=== PATIENT | female | born 1975 | race Hispanic/Latino ===

== ENCOUNTER 2021-10-23 19:02 | Emergency (ER) | payer SELFPAY ==
[2021-10-23 19:17] VITALS: BP 126/64; PULSE 98; RESP 18; TEMP 36.9; O2SAT 100
--- NOTE | 2021-10-23 19:59 | ED.LOWEXIN ---
HPI - Extremity Injury (Lower) General Chief Complaint: Extremity Injury, Lower Stated Complaint: Right Leg Pain Time Seen by Provider: 10/23/21 19:59 Source: patient Mode of arrival: ambulatory Limitations: no limitations History of Present Illness HPI Narrative: 46-year-old female presents with complaint of pain to left groin for 2 to 3 days. Denies injury. Does not work. States that she does do things around her home such as cleaning, cook and exercise. Has been taking Advil to treat her pain. States that pain comes and goes, is worse with movement. Pain is bad when trying to sit down on toilet. Ambulatory with steady gait but reports that there is pain when ambulatory. All systems reviewed and negative except as noted above. Related Data Allergies Allergy/AdvReac Type Severity Reaction Status Date / Time Penicillins Allergy Rash Verified 10/23/21 19:22 Review of Systems Review of Systems: CONSTITUTIONAL: Denies fever, chills, or sweats. EYES: Denies visual changes, redness, or discharge. ENT: Denies rhinorrhea, congestion, sore throat, or otalgia. CARDIOVASCULAR: Denies chest pain, palpitations, or edema. RESPIRATORY: Denies cough or dyspnea. GASTROINTESTINAL: Denies abdominal pain, nausea, vomiting, or diarrhea. GENITOURINARY: Denies dysuria or hematuria. SKIN: Denies rash or itching. MUSCULOSKELETAL: Reports left groin pain. NEUROLOGIC: Denies headache, numbness, or weakness. PSYCHIATRIC: Denies anxiety or depression. All other systems reviewed are negative, except as documented in HPI. PMFSH Comments At time of signature, agree with nursing past medical, surgical, social and family history. There is no relevant family history pertinent to the presenting complaint. Exam Narrative: GENERAL: This is a well-nourished, well-developed patient, in no apparent distress. HEAD: normocephalic, atraumatic. EYES: PERRL. Sclera clear/white. Vision is grossly intact. EARS: External ears normal NOSE: External nose normal NECK: Neck supple, non-tender without lymphadenopathy, masses or thyromegaly. CARDIOVASCULAR: Regular rate and rhythm without murmurs, gallops, or rubs. RESPIRATORY: Clear to auscultation. Breath sounds equal bilaterally. No wheezes, rales, or rhonchi. SKIN: warm, Dry, intact with no suspicious lesions or rash, good texture and turgor. NEURO: awake, alert, and oriented to person, place and time. There were no obvious focal neurologic abnormalities. EXTREMITIES: tenderness on evaluation of L groin. pain with passive ROM. unable to abduction L hip due to L groin pain. Course Course Level of Care: Express Care Visit Vital Signs Vital signs: Vital Signs Temperature 36.9 C 10/23/21 19:17 Pulse Rate 98 10/23/21 19:17 Respiratory Rate 18 10/23/21 19:17 Blood Pressure 126/64 10/23/21 19:17 Pulse Oximetry 100 10/23/21 19:17 Oxygen Delivery Room Air 10/23/21 19:17 Temperature 36.9 C 10/23/21 19:17 Pulse Rate 98 10/23/21 19:17 Respiratory Rate 18 10/23/21 19:17 Blood Pressure 126/64 10/23/21 19:17 Pulse Oximetry 100 10/23/21 19:17 Oxygen Delivery Room Air 10/23/21 19:17 Reviewed MDM - Extremity Injury (Lower) MDM Narrative Medical decision making narrative: Patient is aware of diagnosis, understands and agrees to treatment plan. Anticipatory guidance given. Patient agrees to follow-up as directed and is aware of reasons to seek care at the emergency department. Portions of this record may have been created with voice recognition software Discharge Plan Discharge Clinical Impression: Strain of left groin Patient Disposition: Home, Self-Care Condition: Stable Instructions: Groin Strain (ED) Additional Instructions: Take medications as prescribed. Do not drive while taking methocarbamol. This medication may make you drowsy. Do light stretching exercises as tolerated. Alternate between ice and heat. See your doctor if pain not improving
== END 2021-10-23 20:15 | disposition home or self-care (01) ==
PROVIDERS: Emergency Provider Nurse Practitioner Family; PCP Registered Nurse
DX: S39.011A Strain of muscle, fascia and tendon of abdomen, initial encounter (principal); X58.XXXA Exposure to other specified factors, initial encounter
CPT/HCPCS: 99213; G0463